=== PATIENT | male | born 1995 | race Caucasian/White ===

== ENCOUNTER → 2016-06-05 | Outpatient (CLI) | payer OTHER | LOC: BMCIMAGING 12:56 | PROVIDERS: ATTEND Emergency Medicine | DX: S52.512A Displaced fracture of left radial styloid process, initial encounter for closed fracture (principal) ==

== ENCOUNTER → 2016-06-14 | Outpatient (CLI) | payer OTHER | LOC: BMCIMAGING 09:25 | PROVIDERS: ATTEND Family Medicine | DX: S52.512D Displaced fracture of left radial styloid process, subsequent encounter for closed fracture with routine healing (principal) ==

== ENCOUNTER → 2016-07-19 | Outpatient (CLI) | payer OTHER | LOC: BMCIMAGING 09:26 | PROVIDERS: ATTEND Family Medicine | DX: S52.572D Other intraarticular fracture of lower end of left radius, subsequent encounter for closed fracture with routine healing (principal) ==